=== PATIENT | male | born 1950 | race Caucasian/White ===

== ENCOUNTER 2017-02-16 12:05 | Emergency (ER) | payer OTHER, BC ==
[2017-02-16] MEDS ORDERED: ACETAMINOPHEN 325 MG TABLET (FP) PO ONE (12:09)
[2017-02-16 12:11] VITALS: BP 154/92; PULSE 52; TEMP 98.7; BMI 25.7
[2017-02-16] MEDS ORDERED: ACETAMINOPHEN 325 MG TABLET (FP) ONE (12:14)
--- NOTE | 2017-02-16 12:17 | PDOC ---
History of Present Illness - General Chief Complaint: Injury Stated Complaint: RIGHT 5TH FINGER INJURY Time Seen by Provider: 02/16/17 12:09 History Source: Patient Exam Limitations: No Limitations - History of Present Illness Initial Comments: 02/16/17 12:11 66-year-old male with no past medical history presents to the emergency department with fifth digit pain. The patient was attempting to help somebody and Someone. When he had actually hit his fifth digit on his right hand. Noted that it was deviated but no skin breakage. He had reduced on its own. This occurred yesterday. However, patient started developing swelling and pain in the came into the ED for further evaluation. Patient is right-hand dominant. Past History - Past Medical History Allergies/Adverse Reactions: Allergies Allergy/AdvReac Type Severity Reaction Status Date / Time No Known Allergies Allergy Verified 02/16/17 12:07 Home Medications: Ambulatory Orders Oxycodone HCl 5 mg PO Q6H PRN #15 tablet MDD 4 02/16/17 Propecia 02/16/17 Rosuvastatin Calcium [Crestor] mg PO DAILY 02/16/17 Anemia: Yes (thalassemia) - Psycho/Social/Smoking Cessation Hx Anxiety: No Suicidal Ideation: No Smoking History: Never smoked Hx Alcohol Use: No Drug/Substance Use Hx: No Review of Systems - Review of Systems Able to Perform ROS?: Yes Comments:: 02/16/17 12:15 GENERAL/CONSTITUTIONAL: No fever, weakness. HEAD, EYES, EARS, NOSE AND THROAT: No change in vision. No ear pain or discharge. No sore throat. CARDIOVASCULAR: No chest pain or shortness of breath. RESPIRATORY: No cough, wheezing, or hemoptysis. GASTROINTESTINAL: No abdominal pain, nausea, vomiting, diarrhea, or decreased PO intolerance. GENITOURINARY: No dysuria, frequency, or change in urination. MUSCULOSKELETAL: 5th digit R hand pain SKIN: No rash NEUROLOGIC: No headache, vertigo, loss of consciousness, or change in strength/ sensation. ENDOCRINE: No increased thirst. No abnormal weight change. HEMATOLOGIC/LYMPHATIC: No anemia, easy bleeding, or history of blood clots. ALLERGIC/IMMUNOLOGIC: No hives or skin allergy. *Physical Exam - Vital Signs Last Vital Signs Temp Pulse Resp BP Pulse Ox 98.7 F 52 L 18 154/92 98 02/16/17 12:05 02/16/17 12:05 02/16/17 12:05 02/16/17 12:05 02/16/17 12:05 - Physical Exam Comments: 02/16/17 12:15 GENERAL: Awake, alert, and fully oriented, in no acute distress. HEAD: No signs of trauma EXTREMITIES: Normal range of motion, no edema. No clubbing or cyanosis. No cords, erythema, or tenderness RUE: 2+ radial pulse. sensation intact throughout. radian/median/ulnar distribution intact strength-schaefer. 5th digit with mild swelling. No obvious gross abnormalities. TTP 5th DIP. <2 sec cap refill. Can flex and extend digit though limited 2/2 swelling/pain. NEUROLOGICAL: Cranial nerves II through XII grossly intact. Normal speech, normal gait SKIN: Warm, Dry, normal turgor, no rashes or lesions noted. Procedures - Splinting Splint Location: Right: Finger, Wrist Pre-Proc Neuro Vasc Exam: normal Hand-Made Type: orthoglass Splint Type: Yes: Short Arm (ulnar gutter) Post-Proc Neuro Vasc Exam: normal Cory Bandage: 4" Sling: No Complications: No ED Treatment Course - RADIOLOGY Radiology Studies Ordered: Category Date Time Status FINGER(S) RIGHT [RAD] Stat Radiology 02/16/17 12:09 Ordered Medical Decision Making - Medical Decision Making 02/16/17 12:16 Vital Signs Temp Pulse Resp BP Pulse Ox 98.7 F 52 L 18 154/92 98 02/16/17 12:05 02/16/17 12:05 02/16/17 12:05 02/16/17 12:05 02/16/17 12:05 Will obtain an xray of the right 5th digit to r/o fracture. Either way, as per history, pt likely with dislocated but now relocated 5th digit. Will place ulnar gutter for stabilization. 02/16/17 13:05 X-ray reviewed. Final skin suspicious for avulsion injury at the radial and volar base of the distal findings of the fifth digit. Pt was placed in an ulnar gutter splint. Will give follow up to a hand surgeon. Pt verbalizes understanding and agrees with plan. I discussed the physical exam findings, ancillary test results and final diagnoses with the patient. I answered all of the patient's questions. The patient was satisfied with the care received and felt comfortable with the discharge plan and treatment plan. The patient will call their primary care physician within 24 hours to arrange follow-up and will return to the Emergency Department with any new, persistant or worsening symptoms. *DC/Admit/Observation/Transfer Diagnosis at time of Disposition: Finger fracture, right Qualifiers: Encounter type: initial encounter Finger: little finger Fracture type: closed Phalanx: distal Fracture alignment: nondisplaced Qualified Code(s): S62.666A - Nondisplaced fracture of distal phalanx of right little finger, initial encounter for closed fracture - Discharge Dispostion Disposition: HOME Condition at time of disposition: Stable - Prescriptions Prescriptions: Oxycodone HCl 5 mg PO Q6H PRN #15 tablet MDD 4 PRN Reason: Pain Level 6-10 - Referrals Referrals: Russell Cavanaugh MD [Staff Physician] - - Patient Instructions Printed Discharge Instructions: DI for Finger Fracture, DI for Finger Dislocation Additional Instructions: Please make an appointment with Dr. Cavanaugh. Call to schedule an appointment. Wear the splint at all times. Elevate the hand as much as you can. Ice as needed for comfort. 650 mg tylenol every 4 hours as needed for pain. For severe pain control, take a tablet of oxycodone. This medication may make you drowsy so please do not drink or drive.
== END 2017-02-16 13:13 | disposition home or self-care (01) ==
LOC: FER 12:05
PROC: 2W3JX1Z Immobilization of Right Finger using Splint (ICD-10-PCS; principal; 2017-02-16)
DX: S62.666A Nondisplaced fracture of distal phalanx of right little finger, initial encounter for closed fracture (principal); W22.8XXA Striking against or struck by other objects, initial encounter; Y93.89 Activity, other specified; Y92.9 Unspecified place or not applicable
CPT/HCPCS: 73140-TC-RT; 99283-25